=== PATIENT | male | born 2000 | race Caucasian/White ===

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

== ENCOUNTER 2024-04-14 09:12 | Outpatient (REF) | payer MEDICAID, SELFPAY ==
[2024-04-14 17:06] LABS: Bilirubin Negative (Negative); Blood Trace-lysed (Negative); Clarity Clear (Clear); Glucose Negative (Negative); Ketones Negative (Negative); Leukocyte Esterase Negative (Negative); Nitrite Negative (Negative); Urobilinogen 0.2 mg/dL (Up to 0.2); pH 6.5 (5-8)
[2024-04-14 17:44] LABS: Epithelial Cells Rare HPF (Negative); RBC 0-2 HPF (0-2); WBC 0-2 HPF (0-5)
[2024-04-14 17:45] LABS: Bacteria Negative HPF (Negative); C & S Indicated? No
[2024-04-16 12:59] LABS: Chlamydia Result Negative (Negative); GC Result Negative (Negative)
== END 2024-04-14 09:13 ==
LOC: LBN 09:12
PROVIDERS: PCP Family Medicine; Visit Provider Physician Assistant
DX: L98.9 Disorder of the skin and subcutaneous tissue, unspecified (principal); R10.2 Pelvic and perineal pain; N39.0 Urinary tract infection, site not specified; B95.62 Methicillin resistant Staphylococcus aureus infection as the cause of diseases classified elsewhere
CPT/HCPCS: 87077; 87491; 87591; 81003; 81015; 87070; 87186; 87205

== ENCOUNTER 2024-04-23 13:57 | Outpatient (CLI) | payer MEDICAID, SELFPAY ==
--- NOTE | 2024-04-23 13:00 | DI.RAD_ITS ---
Exam(s) XR LUMBAR SPINE COMPLETE EXAM: XR LUMBAR SPINE COMPLETE CLINICAL HISTORY: exacerbated LBP M54.50 LOW BACK PAIN. TECHNIQUE: 2D digital imaging was performed. COMPARISON: No exams were available for comparison FINDINGS: Five views. There is transitional anatomy here with a transitional lumbosacral vertebra. There is scoliosis conv ex left. At the center of scoliosis is on the right side of L3-4 level where there is asymmetric ivonne rowing of the right-side of the disc space. There is no evidence of fracture or listhesis in the lumbar spine. No obvious facet arthropathy. Sa croiliac joints appear unremarkable. Bone density normal. No osseous lesions. IMPRESSION: As above DATA REPOSITORY: RADIATION DOSE DELIVERED:
--- OUTSIDE RECORDS SUMMARY | 2024-04-23 14:04 | XMS_ITS | Encounter Summary ---
Author Organization [facility] Address [address] [place] [address] Care Team Providers Care Lockstitch Sleeve Maker Name Role Phone Unavailable Primary Care Provider Unavailabl e Encounter Details Date Type Department Care Team (Late st Contact Info) Description 08/23/2020 Lab Requisition [facility] Pathology & Laboratory Medicine - [facility] [address] [place], [place] [address] Outr Resulting Lab, Provider Social History Tobacco Use Types Packs/Day Years Used Date Smoking Tobacco: Never Assessed Interpersonal Safety Answer Date Record ed Physically Hurt Never 04/22/2020 Verbally Threaten Not on file 04/22/2020 Sex and Gender Information Value Date Recorded Sex Assigned at Not on file Legal Sex Male 12:25 EDT Gender Identity Not on file Sexual Orientation Not on file documented as of this encounter Plan of Treatment Not on file documented as of this encounter Procedures Procedure Name Priority Date/Time Associated Diagnosis Comments CHLAMYDIA/N. GONORRHOEAE AMPLIFIED NUCLEIC ACID Routine 08/22/2020 14:15 EDT documented in this encounter Results * CHLAMYDIA/N. GONORRHOEAE AMPLIFIED RNA (08/22/2020 14:15 EDT) Neisseria gonorrhoeae Result Negative Negative 08/25/2020 14:49 EDT [facility] Chlamydia trachomatis Result Negative Negative 08/25/2020 14:49 EDT [facility] Urine URINE / Unknown 08/22/2020 1 4:15 EDT 08/24/2020 18:26 EDT us Provider Outr Resulting Lab MICROBIOLOGY - GENER AL ORDERABLES Final Result [facility] [address] [place] [id number] documented in this encounter Visit Diagnoses Not on filedocumented in this encounter
--- OUTSIDE RECORDS SUMMARY | 2024-04-23 14:04 | XMS_ITS | Referral Summary ---
Author Organization [facility] Address [address] [place] [address] Care Team Providers Care Friction Paint Machine Tender Name Role Phone Unavailable Primary Care Provider Unavailabl e Encounters Date Type Department Care Team Description 04/15/2024 Lab Requisition [facility] Pathology & Laboratory Medicine - [facility] [address] [place] [address] Outr Resulting Lab, Provider from Last 3 Months Social History Tobacco Use Types Packs/Day Years Used Date Smoking Tobacco: Never Assessed Interpersonal Safety Answer Date Record ed Physically Hurt Never 04/22/2020 Verbally Threaten Not on file 04/22/2020 Sex and Gender Information Value Date Recorded Sex Assigned at Not on file Legal Sex Male 12:25 EDT Gender Identity Not on file Sexual Orientation Not on file Plan of Treatment Not on file Procedures Procedure Name Priority Date/Time Associated Diagnosis Comments CHLAMYDIA/N. GONORRHOEAE AMPLIFIED NUCLEIC ACID Routine 04/14/2024 10:10 EST from Last 3 Months Results * CHLAMYDIA/N. GONORRHOEAE AMPLIFIED NUCLEIC ACID (04/14/2024 10:10 EST) Neisseria gonorrhoeae Result Negative Negative 04/16/2024 12:53 EST [facility] Chlamydia trachomatis Result Negative Negative 04/16/2024 12:53 EST [facility] Urine URINE / Unknown 04/14/2024 1 0:10 EST 04/15/2024 16:09 EST us Provider Outr Resulting Lab MICROBIOLOGY - GENER AL ORDERABLES Final Result [facility] [address] [place] [address] from Last 3 Months
--- OUTSIDE RECORDS SUMMARY | 2024-04-23 14:04 | XMS_ITS | Encounter Summary ---
Author Organization [facility] Address [address] [place] [address] Care Team Providers Care Utility Worker Forge Name Role Phone Unavailable Primary Care Provider Unavailabl e Encounter Details Date Type Department Care Team (Late st Contact Info) Description 04/15/2024 Lab Requisition [facility]ology [facility] Laboratory Medicine - [facility] [address] [place], [place] [address] Outr Resulting Lab, Provider Social History Tobacco [...] AMPLIFIED NUCLEIC ACID Routine 04/14/2024 10:10 EST documented in this encounter Results * CHLAMYDIA/N. GONORRHOEAE AMPLIFIED NUCLEIC ACID (04/14/2024 10:10 EST) Neisseria gonorrhoeae Result Negative Negative 04/16/2024 12:53 EST [facility] Chlamydia trachomatis Result Negative Negative 04/16/2024 12:53 EST [facility] Urine URINE / Unknown 04/14/2024 1 0:10 EST 04/15/2024 16:09 EST us Provider Outr Resulting Lab MICROBIOLOGY - GENER AL ORDERABLES Final Result [facility] [address] [place] [address] documented in this encounter Visit Diagnoses Not on filedocumented in this encounter
--- OUTSIDE RECORDS SUMMARY | 2024-04-23 14:04 | XMS_ITS | Encounter Summary ---
Author Organization [facility] Address [address] [place] [address] Care Team Providers Care Lime Filter Operator Name Role Phone Unavailable Primary Care Provider Unavailabl e Encounter Details Date Type Department Care Team (Late st Contact Info) Description 02/08/2020 Lab Requisition [facility] Pathology & Laboratory Medicine - [facility] [place] [address] [place] [address] Outr Resulting Lab, Provider Social History Tobacco Use Types Packs/Day Years Used Date Smoking Tobacco: Never Assessed Sex and Gender Information Value Date Recorded Sex Assigned at Not on file Legal Sex Male 12:25 EDT Gender Identity Not on file Sexual Orientation Not on file documented as of this encounter Plan of Treatment Not on file documented as of this encounter Procedures Procedure Name Priority Date/Time Associated Diagnosis Comments CHLAMYDIA/N. GONORRHOEAE AMPLIFIED NUCLEIC ACID Routine 02/07/2020 14:00 EDT documented in this encounter Results * CHLAMYDIA/N. GONORRHOEAE AMPLIFIED RNA (02/07/2020 14:00 EDT) Neisseria gonorrhoeae Result Negative Negative 02/11/2020 15:35 EDT [facility] Chlamydia trachomatis Result Negative Negative 02/11/2020 15:35 EDT [facility] Urine URINE / Unknown Urine Collect / Unknown 02/07/2020 14:00 EDT 02/09/2020 8:52 EDT us Provider Outr Resulting Lab MICROBIOLOGY - GENER AL ORDERABLES Final Result [facility] [address] [place] [address] documented in this encounter Visit Diagnoses Not on filedocumented in this encounter
--- OUTSIDE RECORDS SUMMARY | 2024-04-23 14:04 | XMS_ITS | Encounter Summary ---
Author Organization [facility] Address [address] [place] [address] Care Team Providers Care Field Observer Name Role Phone Unavailable Primary Care Provider Unavailabl e Encounter Details Date Type Department Care Team (Late st Contact Info) Description 02/08/2020 Lab Requisition [facility] Pathology & Laboratory Medicine - [facility] [address] [place] [address] Outr Resulting Lab, Provider Social History Tobacco [...] Procedure Name Priority Date/Time Associated Diagnosis Comments SYPHILIS SEROLOGY Routine 02/07/2020 14: 00 EDT documented in this encounter Results * SYPHILIS SEROLOGY (02/07/2020 14:00 EDT) Syphilis Serology Negative Negative 02/11/2020 11:56 EDT [facility] Blood VENOUS BLOOD / Unknown 02/07/2020 14:00 EDT 02/08/2020 17:38 EDT us Provider Outr Resulting Lab IMMUNOLOGY AND SEROL OGY ORDERABLES Final Result [facility] [address] [place] [address] documented in this encounter Visit Diagnoses Not on filedocumented in this encounter
--- OUTSIDE RECORDS SUMMARY | 2024-04-23 14:04 | XMS_ITS | Encounter Summary ---
Author Organization [facility] Address [address] [place] [address] Care Team Providers Care Inspector Repairer Name Role Phone Unavailable Primary Care Provider Unavailabl e Encounter Details Date Type Department Care Team (Late st Contact Info) Description 12/25/2019 Lab Requisition [facility] Pathology & Laboratory Medicine - [facility] [address] [place], [place] [address] Outr Resulting Lab, Provider Social History Tobacco [...] Procedure Name Priority Date/Time Associated Diagnosis Comments DO NOT ORDER STANDALONE - BROAD COVID TEST Today 12/25/2019 10:48 EDT COVID-19 TESTING Routine 12/25/2019 10:4 8 EDT documented in this encounter Results * DO NOT ORDER STANDALONE - BROAD COVID TEST (12/25/2019 10:48 EDT) COVID-19 rt-PCR Result NEGATIVE Negative 12/27/2019 22:09 EDT [facility] Comment: 2019-novel Coronavirus (2019-nCoV) not detected by the qRT-PCR assay. Consider testing for other respiratory viruses or re-collecting for 2019-nCoV testing. Note: Optimum timing for peak viral levels during infections caused by 2019-nCoV have not been determined. Collection of multiple specimens from the same patient may be necessary to detect the virus. Limitations Positive results are indicative of active infection with SARS-CoV-2 but do not rule out bacterial infection or co-infection with other viruses. The agent detected may not be the definite cause of disease. In addition, detection of viral RNA may not indicate the presence of infectious virus or that SARS-CoV-2 is the causative agent for clinical symptoms. Negative results do not preclude SARS-CoV-2 infection and should not be used as the sole basis for patient management decisions. Negative results must be combined with clinical observations, patient history, and epidemiological information. False negative results may also occur if amplification inhibitors are present in the specimen or if inadequate numbers of organisms are present in the specimen. Optimum specimen types and timing for peak viral levels during infections caused by SARS-CoV-2 have not been fully determined. Collection of multiple specimens (types and time points) from the same patient may be necessary to detect the virus. The test was validated for use with upper respiratory specimens obtained via nasopharyngeal or oropharyngeal swabs in VTM, UTM, M4, M5, M6, saline, and MTM media. The performance of this test has not been established for other specimens. Specimens collected using other FDA recommended Specimen Collection Materials listed in the FDA COVID-19 [employer] communication (August 23, 2019) are processed with the caveat that they were not all validated for use with this test and the result must be interpreted in this context. Furthermore, a false negative results may occur if a specimen is improperly collected, transported or handled. If the virus mutates in the RT-PCR target region, SARS-CoV-2 may not be detected or may be detected less predictably. Inhibitors or other types of interference may produce a false negative result. An interference study evaluating the effect of common cold medications was not performed. This test is not FDA-cleared but its performance characteristics were established by our CLIA-certified, CAP-accredited, high complexity laboratory in accordance with CLIA regulations, [employer] (CAP) guidelines (Aug 16, 2019), and FDA guidance (Jul 28, 2019). This test is only for use under the Food and Drug Administration's Emergency Use Authorization. Swab ENTIRE NASOPHARYNX / Unknown 12/25/2019 10:48 EDT 12/25/2019 15:45 EDT us Provider Outr Resulting Lab MICROBIOLOGY - GENER AL ORDERABLES Final Result [place] * COVID-19 TESTING (12/25/2019 10:48 EDT) [facility] COVID-19 rt-PCR Result NEGATIVE Negative 12/28/2019 5:23 EDT [facility] Comment: 2019-novel Coronavirus (2019-nCoV) not detected by the qRT-PCR assay. Consider testing for other respiratory viruses or re-collecting for 2019-nCoV testing. Note: Optimum timing for peak viral levels during infections caused by 2019-nCoV have not been determined. Collection of multiple specimens from the same patient may be necessary to detect the virus. Limitations Positive results are indicative of active infection with SARS-CoV-2 but do not rule out bacterial infection or co-infection with other viruses. The agent detected may not be the definite cause of disease. In addition, detection of viral RNA may not indicate the presence of infectious virus or that SARS-CoV-2 is the causative agent for clinical symptoms. Negative results do not preclude SARS-CoV-2 infection and should not be used as the sole basis for patient management decisions. Negative results must be combined with clinical observations, patient history, and epidemiological information. False negative results may also occur if amplification inhibitors are present in the specimen or if inadequate numbers of organisms are present in the specimen. Optimum specimen types and timing for peak viral levels during infections caused by SARS-CoV-2 have not been fully determined. Collection of multiple specimens (types and time points) from the same patient may be necessary to detect the virus. The test was validated for use with upper respiratory specimens obtained via nasopharyngeal or oropharyngeal swabs in VTM, UTM, M4, M5, M6, saline, and MTM media. The performance of this test has not been established for other specimens. Specimens collected using other FDA recommended Specimen Collection Materials listed in the FDA COVID-19 [employer] communication (August 23, 2019) are processed with the caveat that they were not all validated for use with this test and the result must be interpreted in this context. Furthermore, a false negative results may occur if a specimen is improperly collected, transported or handled. If the virus mutates in the RT-PCR target region, SARS-CoV-2 may not be detected or may be detected less predictably. Inhibitors or other types of interference may produce a false negative result. An interference study evaluating the effect of common cold medications was not performed. This test is not FDA-cleared but its performance characteristics were established by our CLIA-certified, CAP-accredited, high complexity laboratory in accordance with CLIA regulations, [employer] (CAP) guidelines (Aug 16, 2019), and FDA guidance (Jul 28, 2019). This test is only for use under the Food and Drug Administration's Emergency Use Authorization. Performing Lab [facility] [employer] [facility] 12/28/2019 5:23 EDT [facility] Swab 12/25/2019 10:4 8 EDT 12/25/2019 15:45 EDT us Provider Outr Resulting Lab MICROBIOLOGY - GENER AL ORDERABLES Final Result [facility] [address] [place] [address] [facility] [place] documented in this encounter Visit Diagnoses Not on filedocumented in this encounter
--- OUTSIDE RECORDS SUMMARY | 2024-04-23 14:04 | XMS_ITS | Encounter Summary ---
Author Organization [facility] Address [address] [place] [address] Care Team Providers Care Supervisor Drying And Softening Name Role Phone Unavailable Primary Care Provider Unavailabl e Encounter Details Date Type Department Care Team (Late st Contact Info) Description 02/08/2020 Lab Requisition [facility] Pathology & Laboratory Medicine - [facility] [address], [place] [address] Outr Resulting Lab, Provider Social History Tobacco [...] Procedure Name Priority Date/Time Associated Diagnosis Comments HIV 1/2 ANTIGEN AND ANTIBODY, 4TH GENERATION Routine 02/07/2020 14:00 EDT documented in this encounter Results * HIV 1/2 ANTIGEN AND ANTIBODY, 4TH GENERATION (02/07/2020 14:00 EDT) HIV 1 and 2 Antibody/p24 Antigen, 4th Generation Negative Negative 02/11/2020 9:54 EDT [facility] Comment: If acute HIV-1 infection is suspected in a high risk ??patient, submit plasma specimen for HIV-1 RNA quantitation test. Fourth Generation assay performed on the Siemens Centaur. Blood VENOUS BLOOD / Unknown 02/07/2020 14:00 EDT 02/08/2020 17:38 EDT us Provider Outr Resulting Lab IMMUNOLOGY AND SEROL OGY ORDERABLES Final Result [facility] [address] [place] [address] documented in this encounter Visit Diagnoses Not on filedocumented in this encounter
--- OUTSIDE RECORDS SUMMARY | 2024-04-23 14:04 | XMS_ITS | Clinical Summary ---
Author Organization [facility] Address [address] [place] [address] Care Team Providers Care Transportation Security Screener Name Role Phone Unavailable Primary Care Provider Unavailabl e Encounters Date Type Department Care Team Description 04/15/2024 Lab Requisition [facility] Pathology & Laboratory Medicine - [facility] [address] [place] [address] Outr Resulting Lab, Provider from Last 3 [...] Orientation Not on file Plan of Treatment Health Maintenance Due Date Last Done Comments Hepatitis C Screen 2002 Hepatitis B Vaccine (1 of 3 - 19+ 3-dose series) 05/13 COVID-19 Vaccine (2023- season) 2024 Procedures Procedure Name Priority Date/Time Associated Diagnosis Comments CHLAMYDIA/N. GONORRHOEAE AMPLIFIED NUCLEIC ACID Routine 04/14/2024 10:10 EST from Last 3 Months Results * CHLAMYDIA/N. GONORRHOEAE AMPLIFIED NUCLEIC ACID (04/14/2024 10:10 EST) Neisseria gonorrhoeae Result Negative Negative 04/16/2024 12:53 EST [facility] Chlamydia trachomatis Result Negative Negative 04/16/2024 12:53 EST [facility] Urine URINE / Unknown 04/14/2024 1 0:10 EST 04/15/2024 16:09 EST us Provider Outr Resulting Lab MICROBIOLOGY - GENER AL ORDERABLES Final Result [facility] [address] [place] [address] from Last 3 Months
--- OUTSIDE RECORDS SUMMARY | 2024-04-23 14:04 | XMS_ITS | Continuity of Care Document ---
Author Organization [facility] Address [address] [place] [address] Care Team Providers Care Researcher Name Role Phone Outside, Provider Primary Care Physician [phone] Encounter [facility] Date(s): 01/08/24 - 01/08/[address] [address] Encounter Diagnosis Cellulitis(Discharge Diagnosis) - 01/08/24 Abscess(Discharge Diagnosis) - 01/08/24 Discharge Disposition: Home or Self Care Attending Physician: Izaiah De La Torre MD Admitting Physician: Izaiah De La Torre MD Allergies, Adverse Reactions, Alerts Substance Reaction Severity Status penicillin Unknown Active Assessment and Plan Extracted from: Title:ED Provider Note Author:Tay Andrews MD D ate:01/08/24 Assessment/Plan 1.??Cellulitis??L03.90 Ordered: cephalexin 500 mg oral capsule, 500 mg = 1 cap, Oral, every 8 hr, X 7 days, # 21 cap, 0 Refill(s), 01/15/24 19:03:00 EDT, Pharmacy: [facility] #[id number] doxycycline hyclate 50 mg oral capsule, 100 mg = 2 cap, Oral, every 12 hr, X 7 days, # 28 cap, 0 Refill(s), 01/15/24 19:03:00 EDT, Pharmacy: [facility] #[id number] Discharge Patient, 01/08/24 19:04:00 EDT, Home Independently, Constant Indicator ?? 2.??Abscess??L02.91 Ordered: cephalexin 500 mg oral capsule, 500 mg = 1 cap, Oral, every 8 hr, X 7 days, # 21 cap, 0 Refill(s), 01/15/24 19:03:00 EDT, Pharmacy: [facility] #[id number] doxycycline hyclate 50 mg oral capsule, 100 mg = 2 cap, Oral, every 12 hr, X 7 days, # 28 cap, 0 Refill(s), 01/15/24 19:03:00 EDT, Pharmacy: [facility] #[id number] Discharge Patient, 01/08/24 19:04:00 EDT, Home Independently, Constant Indicator ?? Orders: Keflex, 500 mg = 2 cap, Oral, Cap, Once, Antibiotic Indication Cellulitis, First Dose: 01/08/24 19:02:00 EDT, Stop Date: 01/08/24 19:02:00 EDT, Physician Stop, STAT doxycycline monohydrate, 100 mg = 1 cap, Oral, Cap, Once, Antibiotic Indication Cellulitis, First Dose: 01/08/24 19:02:00 EDT, Stop Date: 01/08/24 19:02:00 EDT, Physician Stop, STAT Patient Education Cellulitis, Adult, Yynh-yn-Pfji Follow Up With When Contact Information Follow up with primary care provider Within 1 month Additional Instructions: Medications cephalexin 500 mg oral capsule 500 mg = 1 cap, Oral, every 8 hr, X 7 days, # 21 cap, 0 Refill(s), 01/15/24 6:03:00 PM CDT, Pharmacy: [facility] #[id number] Start Date: 01/08/24 Stop Date: 01/15/24 Status: Ordered doxycycline hyclate 50 mg oral capsule 100 mg = 2 cap, Oral, every 12 hr, X 7 days, # 28 cap, 0 Refill(s), 01/15/24 6:03:00 PM CDT, Pharmacy: [facility] #[id number] Start Date: 01/08/24 Stop Date: 01/15/24 Status: Ordered Problem List No Known Problems Vital Signs Most recent to oldest [Reference Range]: 1 Temperature Temporal Artery [36-38 Deg C ] 35.9 Deg C *LOW* (01/08/24 6:38 PM) Peripheral Pulse Rate [60-100 bpm] 92 bp m (01/08/24 6:38 PM) Respiratory Rate [12-24 br/min] 16 br/mi n (01/08/24 6:38 PM) Blood Pressure [90-140/60-90 mmHg] 158/6 7mmHg *HI* (01/08/24 6:38 PM) Mean Arterial Pressure, Cuff [65-140 mmH g] 97 mmHg (01/08/24 6:38 PM) Weight Estimated 81.65 kg (01/08/24 6:38 PM) Body Mass Index Estimated 24.65 kg/m2 (01/08/24 6:38 PM) Height/Length Estimated 182 cm (01/08/24 6:38 PM) Social History Social History Type Response Tobacco Current everyday tob acco user Tobacco Use:. Sex Male Hospital Discharge Instructions Patient Education 01/08/2024 18:04:32 Cellulitis, Adult, Wkbx-ri-Prmi Cellulitis, Adult Cellulitis is a skin infection. The infected area is often warm, red, swollen, and sore. It occurs most often in the arms and lower legs. It is very important to get treated for this condition. What are the causes? This condition is caused by bacteria. The bacteria enter through a break in the skin, such as a cut, burn, insect bite, open sore, or crack. What increases the risk? This condition is more likely to occur in people who: ??? Have a weak body defense system (immune system). ??? Have open cuts, salgado, bites, or scrapes on the skin. ??? Are older than 60 years of age. ??? Have a blood sugar problem (diabetes). ??? Have a long-lasting (chronic) liver disease (cirrhosis) or kidney disease. ??? Are very overweight (obese). ??? Have a skin problem, such as: ??? Itchy rash (eczema). ??? Slow movement of blood in the veins (venous stasis). ??? Fluid buildup below the skin (edema). ??? Have been treated with high-energy rays (radiation). ??? Use IV drugs. What are the signs or symptoms? Symptoms of this condition include: ??? Skin that is: ??? Red. ??? Streaking. ??? Spotting. ??? Swollen. ??? Sore or painful when you touch it. ??? Warm. ??? A fever. ??? Chills. ??? Blisters. How is this diagnosed? This condition is diagnosed based on: ??? Medical history. ??? Physical exam. ??? Blood tests. ??? Imaging tests. How is this treated? Treatment for this condition may include: ??? Medicines to treat infections or allergies. ??? Home care, such as: ??? Rest. ??? Placing cold or warm cloths (compresses) on the skin. ??? Hospital care, if the condition is very bad. Follow these instructions at home: Medicines ??? Take svba-lib-wscccfp and prescription medicines only as told by your doctor. ??? If you were prescribed an antibiotic medicine, take it as told by your doctor. Do not stop taking it even if you start to feel better. General instructions ??? Drink enough fluid to keep your pee (urine) pale yellow. ??? Do not touch or rub the infected area. ??? Raise (elevate) the infected area above the level of your heart while you are sitting or lying down. ??? Place cold or warm cloths on the area as told by your doctor. ??? Keep all follow-up visits as told by your doctor. This is important. Contact a doctor if: ??? You have a fever. ??? You do not start to get better after 1???2 days of treatment. ??? Your bone or joint under the infected area starts to hurt after the skin has healed. ??? Your infection comes back. This can happen in the same area or another area. ??? You have a swollen bump in the area. ??? You have new symptoms. ??? You feel ill and have muscle aches and pains. Get help right away if: ??? Your symptoms get worse. ??? You feel very sleepy. ??? You throw up (vomit) or have watery poop (diarrhea) for a long time. ??? You see red streaks coming from the area. ??? Your red area gets larger. ??? Your red area turns dark in color. These symptoms may represent a serious problem that is an emergency. Do not wait to see if the symptoms will go away. Get medical help right away. Call your local emergency services (911 in the [place] Do not drive yourself to the hospital. Summary ??? Cellulitis is a skin infection. The area is often warm, red, swollen, and sore. ??? This condition is treated with medicines, rest, and cold and warm cloths. ??? Take all medicines only as told by your doctor. ??? Tell your doctor if symptoms do not start to get better after 1???2 days of treatment. This information is not intended to replace advice given to you by your health care provider. Make sure you discuss any questions you have with your health care provider. Document Revised: 02/24/2022 Document Reviewed: 02/25/2022 [employer] Patient Education ?? 2022 [employer]. Follow Up Care 01/08/2024 18:37:21 With:Follow up with primary care provider Address:Unknown When:1 month Physician Emergency department Note * Tay Andrews MD: PERFORM Event Display: ED Note Physician Authored Date: [id number] MCLEANLAWSON :2000 Age:23 years Sex:Male Visit Date:01/08/2024 Basic Information Time Seen: Tay Andrews MD / 01/08/2024 18:54 Chief Complaint Pt states had bug bite one week ago that became painful, firm to the touch yesterday. Pt reporst pus and clear liquid draining from it. History Of Present Illness: Patient is 23-year-old male presenting with a??skin infection. ??Patient states that approximately week ago he was bit by a??insect??it had been doing well at that time however last night noted that it became swollen??and irritated and today began draining pus and??serosanguineous fluids. ??No fevers no chills no significant pain but presents today for further evaluation. Review of Systems: ROS as per HPI Physical Exam Vitals & Measurements T:??35.9?C ??(Temporal Artery)?? HR:??92??(Peripheral)?? RR:??16?? BP:??158/67?? SpO2:??100%?? HT:??182??cm?? WT:??81.65??kg??(Estimated)?? BMI:??24.65?? Pain Score:??3?? O2 Therapy:??Room air?? General: Alert and oriented, No acute distress Skin: Small open pustule approximately half a centimeter in??diameter??to the volar aspect of the left forearm??no obvious drainage noted??there is some surrounding induration to the skin and??erythema without area of fluctuance Neurologic: Awake, alert and oriented X4 Medical Decision Making: Patient is a 23-year-old male presenting with??infection to his left forearm. ??He is well-appearing here??wound is actively draining??will prescribe??about coverage for both staph and strep given the surrounding??concern for cellulitis. ??He will be discharged follow-up in outpatient. ??He understands agrees to this plan. Procedure No Qualifying Data Assessment/Plan 1.??Cellulitis??L03.90 Ordered: cephalexin 500 mg oral capsule, 500 mg = 1 cap, Oral, every 8 hr, X 7 days, # 21 cap, 0 Refill(s), 01/15/24 19:03:00 EDT, Pharmacy: [facility] #[id number] doxycycline hyclate 50 mg oral capsule, 100 mg = 2 cap, Oral, every 12 hr, X 7 days, # 28 cap, 0 Refill(s), 01/15/24 19:03:00 EDT, Pharmacy: [facility] #[id number] Discharge Patient, 01/08/24 19:04:00 EDT, Home Independently, Constant Indicator ?? 2.??Abscess??L02.91 Ordered: cephalexin 500 mg oral capsule, 500 mg = 1 cap, Oral, every 8 hr, X 7 days, # 21 cap, 0 Refill(s), 01/15/24 19:03:00 EDT, Pharmacy: [facility] #[id number] doxycycline hyclate 50 mg oral capsule, 100 mg = 2 cap, Oral, every 12 hr, X 7 days, # 28 cap, 0 Refill(s), 01/15/24 19:03:00 EDT, Pharmacy: [facility] #[id number] Discharge Patient, 01/08/24 19:04:00 EDT, Home Independently, Constant Indicator ?? Orders: Keflex, 500 mg = 2 cap, Oral, Cap, Once, Antibiotic Indication Cellulitis, First Dose: 01/08/24 19:02:00 EDT, Stop Date: 01/08/24 19:02:00 EDT, Physician Stop, STAT doxycycline monohydrate, 100 mg = 1 cap, Oral, Cap, Once, Antibiotic Indication Cellulitis, First Dose: 01/08/24 19:02:00 EDT, Stop Date: 01/08/24 19:02:00 EDT, Physician Stop, STAT Patient Education Cellulitis, Adult, Kqaz-bu-Hrtc Follow Up With When Contact Information Follow up with primary care provider Within 1 month Additional Instructions: Medication Reconciliation New Prescription cephalexin (cephalexin 500 mg oral capsule)1 Capsules Oral (given by mouth) every 8 hours for 7 Days. Refills: 0. ?? doxycycline (doxycycline hyclate 50 mg oral capsule)2 Capsules Oral (given by mouth) every 12 hoursfor 7 Days. Refills: 0. Problem List/Past Medical History Ongoing No chronic problems Historical No qualifying data Allergies penicillin Social History Electronic Cigarette/Vaping Electronic Cigarette Use: Use, within last 90 days. Tobacco Current everyday tobacco user Tobacco Use:. Electronically Signed on 01/08/2024 19:07 EDT Tay Andrews MD Emergency department Discharge instructions * Tay Andrews MD: PERFORM Event Display: ED Discharge Information Authored Date: [id number] LAWSON MCLEAN :2000 Age:23 years Sex:Male Visit Date:01/08/2024 Discharge Instructions We would like to thank you for allowing us to assist you with your healthcare needs. The following includes patient education materials and information regarding your injury/illness. Diagnosis from Today's Visit Cellulitis Abscess Discharge Vitals Temperature??(Temporal Artery) 96.6 ??F (35.9 ??C) Heart Rate??(Peripheral) 92 Respiratory Rate?? 16 Blood Pressure?? 158/67?? SpO2?? 100% Height?? 71.65 in (182 cm) Weight??(Estimated) 180.04 lb (81.65 kg) BMI?? 24.65 Allergies penicillin What to Do Next Instructions from Your Care Team Today you were seen in the emergency department for your skin infection. We did a thorough exam, and gave you antibiotics. Your results did not show a medical emergency, because of this you can be discharged to follow up with your primary care physician as soon as you are able to. Please return to the emergency department for any new or worsening symptoms. You Need to Schedule the Following Appointments Follow Up with??Follow up with primary care provider When:??Within 1 month You were treated today on an emergency basis; it may be tuttle to contact your primary care provider to notify them of your visit today. You may have been referred to your regular doctor or a specialist, please follow up as instructed. If your condition worsens or you can't get in to see the doctor, contact the Emergency Department. Medications What How Much When Why Instructions Next Dose New cephalexin (cephalexin 500 mg oral capsule) 1 Capsules Oral (given by mouth) Every 8 hours Cellulitis Abscess Duration: 7 Days Pickup at [facility] #[id number] New doxycycline (doxycycline hyclate 50 mg oral capsule) 2 Capsules Oral (given by mouth) Every 12 hours Cellulitis Abscess Duration: 7 Days Pickup at [facility] #[id number] Pharmacy Information [facility] #[id number]: [address] [place] [phone] Education Materials Cellulitis, Adult Cellulitis is a skin infection. The infected area is often warm, red, swollen, and sore. It occurs most often in the arms and lower legs. It is very important to get treated for this condition. What are the causes? This condition is caused by bacteria. The bacteria enter through a break in the skin, such as a cut, burn, insect bite, open sore, or crack. What increases the risk? This condition is more likely to occur in people who: ? Have a weak body defense system (immune system). ? Have open cuts, salgado, bites, or scrapes on the skin. ? Are older than 60 years of age. ? Have a blood sugar problem (diabetes). ? Have a long-lasting (chronic) liver disease (cirrhosis) or kidney disease. ? Are very overweight (obese). ? Have a skin problem, such as: ? Itchy rash (eczema). ? Slow movement of blood in the veins (venous stasis). ? Fluid buildup below the skin (edema). ? Have been treated with high-energy rays (radiation). ? Use IV drugs. What are the signs or symptoms? Symptoms of this condition include: ? Skin that is: ? Red. ? Streaking. ? Spotting. ? Swollen. ? Sore or painful when you touch it. ? Warm. ? A fever. ? Chills. ? Blisters. How is this diagnosed? This condition is diagnosed based on: ? Medical history. ? Physical exam. ? Blood tests. ? Imaging tests. How is this treated? Treatment for this condition may include: ? Medicines to treat infections or allergies. ? Home care, such as: ? Rest. ? Placing cold or warm cloths (compresses) on the skin. ? Hospital care, if the condition is very bad. Follow these instructions at home: Medicines ? Take vdcd-mdr-kmnvkto and prescription medicines only as told by your doctor. ? If you were prescribed an antibiotic medicine, take it as told by your doctor. Do not stop taking it even if you start to feel better. General instructions ? Drink enough fluid to keep your pee (urine) pale yellow. ? Do not touch or rub the infected area. ? Raise (elevate) the infected area above the level of your heart while you are sitting or lying down. ? Place cold or warm cloths on the area as told by your doctor. ? Keep all follow-up visits as told by your doctor. This is important. Contact a doctor if: ? You have a fever. ? You do not start to get better after 1???2 days of treatment. ? Your bone or joint under the infected area starts to hurt after the skin has healed. ? Your infection comes back. This can happen in the same area or another area. ? You have a swollen bump in the area. ? You have new symptoms. ? You feel ill and have muscle aches and pains. Get help right away if: ? Your symptoms get worse. ? You feel very sleepy. ? You throw up (vomit) or have watery poop (diarrhea) for a long time. ? You see red streaks coming from the area. ? Your red area gets larger. ? Your red area turns dark in color. These symptoms may represent a serious problem that is an emergency. Do not wait to see if the symptoms will go away. Get medical help right away. Call your local emergency services (911 in the [place] Do not drive yourself to the hospital. Summary ? Cellulitis is a skin infection. The area is often warm, red, swollen, and sore. ? This condition is treated with medicines, rest, and cold and warm cloths. ? Take all medicines only as told by your doctor. ? Tell your doctor if symptoms do not start to get better after 1???2 days of treatment. This information is not intended to replace advice given to you by your health care provider. Make sure you discuss any questions you have with your health care provider. Document Revised: 02/24/2022 Document Reviewed: 02/25/2022 [employer] Patient Education ?? 2022 [employer] Patient/Nurse General Duty Signature Patient Name:LAWSON MCLEAN I have received this information and my questions have been answered. Patient/Nurse General Duty Name: Patient/Nurse General Duty Signature: Relationship to Patient: Witness Name/Signature: Date: Electronically Signed on: 01/08/2024 19:05 EDTSigned by:AAQ Discharge summary * Jorge De La Torre J: PERFORM Event Display: Discharge Summary Authored Date: [id number] Patient Care team information Care Team Personnel Name: Outside, Provider Position: No Access Member Role: Primary Care Physician Care Team Related Persons Name: FELICITAS MCLEAN Name: PALMIRA POWELL Name: RICK BECKER
== END 2024-04-23 14:17 ==
LOC: DI 13:58
PROVIDERS: PCP Family Medicine; Visit Provider Nurse Practitioner Family
DX: M54.50 Low back pain, unspecified (principal)
CPT/HCPCS: 72110

== ENCOUNTER 2024-12-19 16:49 | Outpatient (REF) | payer MEDICAID, SELFPAY ==
[2024-12-19 21:28] LABS: Abs Immature Grans 0.01 10^3/uL (0.0-0.06); HCT 46.0 % (40.0-50.0); HGB 15.6 g/dL (13.5-17.5); Immature Grans % 0.1 %; MCH 30.4 pg (27.0-33.0); MCHC 33.9 % (32.0-36.0); MCV 90 fL (80-95); MPV 10.1 fL (8.0-11.0); Platelet Count 313 10^3/uL (130-400); RBC 5.13 10^6/uL (4.36-5.78); RDW 13.2 % (11.8-14.1); RDW-SD 43.0 fL; WBC 7.08 10^3/uL (4.4-10.8)
[2024-12-19 21:59] LABS: ALT 25 U/L (16-63); AST 17 U/L (15-37); Albumin 4.4 g/dL (3.4-5.0); Alkaline Phosphatase 81 U/L (46-116); Anion Gap 7.6 mmol/L (3-11); BUN 14 mg/dL (7-18); Bilirubin, Total 0.4 mg/dL (0.2-1.0); CO2 30.4 mmol/L (21.0-32.0); Calcium 9.8 mg/dL (8.5-10.1); Chloride 104 mmol/L (98-107); Estimated GFR 123.84 (mL/min/1.73m2); Glucose 113 mg/dL (74-106); Potassium 3.9 mmol/L (3.5-5.1); Sodium 142 mmol/L (136-145); Total Protein 8.0 g/dL (6.4-8.2)
[2024-12-20 20:05] LABS: HIV-1/2 Ag & Ab Screen Negative (Negative)
[2024-12-20 20:08] LABS: Hepatitis C Ab w Rflx HCV PCR Negative (Negative)
[2024-12-21 09:47] LABS: HSV Type 2 Ab, IgG Negative (Negative)
[2024-12-21 10:35] LABS: Syphilis Serology (RPR) Negative (Negative)
[2024-12-21 14:14] LABS: Chlamydia Result Negative (Negative); GC Result Negative (Negative)
== END 2024-12-19 16:50 | disposition home or self-care (01) ==
LOC: LBN 16:49
PROVIDERS: PCP Family Medicine; Visit Provider Nurse Practitioner Family
DX: R10.9 Unspecified abdominal pain (principal); Z11.3 Encounter for screening for infections with a predominantly sexual mode of transmission
CPT/HCPCS: 80053; 86803; 87389; 87491; 87591; 85025; 86592; 86695; 86696

== ENCOUNTER 2025-01-03 03:02 | Outpatient (CLI) | payer MEDICAID, SELFPAY ==
--- NOTE | 2025-01-03 07:15 | DI.CT_ITS ---
Exam(s) CT ABDOMEN PELVIS WO/W EXAM: CT ABDOMEN PELVIS WO/W CLINICAL HISTORY: evaluate pathology,ABD PAIN, HEMATURIA,R10.9,R31.9. TECHNIQUE: Imaging Protocol: Axial computed tomography images with coronal and sagittal reformatted images were created and reviewed This study was performed with CT urogram technique. CONTRAST MATERIAL: Intravenous: Omnipaque-350 75cc Oral: None COMPARISON: No exams were available for comparison FINDINGS: VISUALIZED LUNG BASES: No nodules nor pleural effusions evident. ABDOMEN: There is no ascites. LIVER: There are no focal hepatic lesions evident. No dilated intrahepatic ducts. GALLBLADDER/BILIARY: No obvious gallbladder pathology. CBD is not dilated. PANCREAS: No evidence of pancreatic mass nor dilatation of the pancreatic duct. SPLEEN: Spleen size is upper normal. There are no discrete splenic masses. Splenic and portal veins are patent. ADRENALS: There are no significant adrenal masses. KIDNEYS: Kidneys exhibit normal size. The right kidney measures 11 cm length. The right kidney measures 13 cm length. There are no renal cysts evident. No solid renal masses. No calculi nor hydronephrosis. The enhance from pattern in the kidneys may reflect subtle medullary sponge kidney URETERS: There is a solitary nondilated ureter on each side. No evidence of duplication of the collecting systems. URINARY BLADDER: There is mild uniform thickening of the urinary bladder wall. There is no obvious focal bladder mass. There are no intraluminal radiopaque calculi seen in the bladder lumen. ABDOMINAL AORTA: Abdominal aorta is not enlarged. LYMPH NODES:There is no retroperitoneal nor paraaortic adenopathy. ABDOMINAL WALL: No evidence of significant anterior abdominal wall nor inguinal hernia. GI: There is no evidence of bowel obstruction, free air, nor abscess. PELVIS: GI: No evidence of appendicitis.No evidence of sigmoid diverticulitis. LYMPH NODES: There is no intrapelvic nor inguinal adenopathy. REPRODUCTIVE: Prostate size normal. Seminal vesicles unremarkable. URINARY BLADDER: See above OSSEOUS: No fractures and no significant osseous lesions. There appears to be mild scoliosis in the lumbar spine which is convex left. IMPRESSION: 1. There is no evidence of radiopaque calculi in the kidneys and urinary tracts and there is no evidence of hydronephrosis nor hydroureter. There are no solid renal masses nor renal cysts. Enhanced appearance of the kidneys may reflect subtle findings of medullary sponge kidney disease. 2. There is mild uniform thickening of the urinary bladder wall. No discrete mass. There are no intraluminal calculi seen in the bladder. 3. No other significant findings in the abdomen and pelvis. 4. Mild scoliosis in the lumbar spine noted which is convex left. RADIATION DOSE DELIVERED: 1,275.39mGy.cm Total DLP DATA REPOSITORY: All CT scans at this facility are submitted to the National Radiology Data Registry (NRDR) Dose Index Registry (DIR) with the [employer] (A[employer]). RADIATION OPTIMIZATION: All CT scans at this facility use at least one of these dose optimization techniques: automated exposure control; mA and/or kV adjustment per patient size (includes targeted exams where dose is matched to clinical indication); or iterative reconstruction.
[2025-01-03] MEDS: Normal Saline - Diluent 50 ML VIAL IJ ×2 (11:20→11:21)
[2025-01-03] MEDS: Omnipaque 350 MG/ML 500 ML BTL-Imaging package 75 ML IJ (11:21)
[2025-01-03] MEDS: Normal Saline Flush 10 ML SYR IVP (11:22)
== END 2025-01-03 03:22 ==
LOC: DI 03:02
PROVIDERS: PCP Family Medicine; Visit Provider Nurse Practitioner Family
DX: R93.421 Abnormal radiologic findings on diagnostic imaging of right kidney (principal); R31.9 Hematuria, unspecified; R93.422 Abnormal radiologic findings on diagnostic imaging of left kidney; M41.86 Other forms of scoliosis, lumbar region
CPT/HCPCS: 74178